=== PATIENT | female | born 1975 | race Caucasian/White ===

== ENCOUNTER 2023-02-06 16:32 | Outpatient (REF) | payer BC, SELFPAY ==
--- NOTE | 2023-02-06 16:30 | ENDOMET_PTH ---
PATIENT: Afsaneh Carroll LOC: [facility] U#:[id number] AGE/SX: 47/F ROOM: RE02/06/[address]: Jessie Hunter MD : [id number] BED: DIS: 02/06/2023 SPEC #: [id number] RECD: 02/06/23 17:24 STATUS: SELENE REQ #: [id number] BRITTANEY: 02/06/23 16:[address]: Jessie Hunter DEPT: Surgical Specimen RECD BY: Jia Jacobsen ENTERED: 02/06/23 17:25 SP TYPE: Endomet OTHR DR: Vanessa Cox Tissues: 1 - ENDOMETRIUM BX/ESCOBARETTE Procedures: GROSS AND MICRO LEVEL 4 Comments: [id number]
== END 2023-02-06 16:33 | disposition home or self-care (01) ==
LOC: LBN 16:32
PROVIDERS: PCP Family Medicine; Visit Provider Obstetrics & Gynecology
DX: N93.9 Abnormal uterine and vaginal bleeding, unspecified (principal)
CPT/HCPCS: 88305

== ENCOUNTER → 2023-08-13 03:38 | Outpatient (CLI) | payer BC, SELFPAY ==
[2023-08-13] MEDS: Gadoterate meglumine 20 ML SYRINGE IVP ×2 (09:36→10:12)
[2023-08-13] MEDS: Normal Saline Flush 10 ML SYR IVP (09:37)
--- NOTE | 2023-08-13 10:00 | DI.MRI_ITS ---
Exam(s) MR PELVIS WO/W EXAM: MR PELVIS WO/W CLINICAL HISTORY: D25.9N93.9Uterine leiomyoma, ABN bleeding,Image entire uterus to umbilicus TECHNIQUE: Multiplanar multisequence MRI of the pelvis was performed. CONTRAST MATERIAL: IV Contrast: 20 ML of Dotarem contrast administered. A 2nd injection of 20 mL Do tarem was administered following extravasation of the 1st contrast dose. COMPARISON: US US PELVIS TRANSVAGINAL from 02/03/2023 FINDINGS: Uterus: The uterus is enlarged measuring 18 cm transverse by 14 cm AP x 18 cm long. There are kelly us uterine masses present consistent with uterine fibroids. The largest is in the right uterine fund us and measures 8.2 cm transverse by 7.5 cm AP x 10 cm long. There is a posterior subserosal fibroid measuring 5.8 x 6.3 cm (series 8001, image 21). There is a left fundal fibroid measuring 6 cm trans verse by 7.8 cm AP x 7.4 cm long (series 8001, image 11). There is a 2.3 x 2.2 cm left exophytic fib roid (series 8001, image 17). There are multiple other fibroid present. Their locations include sub serosal, intramural and pedicular aided. Several of the fibroids show hyperintense signal centrally which may reflect necrosis.The endometrium is displaced posteriorly secondary to the numerous fibroid s in the anterior body. Ovaries: The left ovary measures 2.1 x 3.9 cm. (Series 8001, image 18). The right ovary measures 1. 5 x 2.8 cm (series 8001, image 25). Urinary bladder: Unremarkable. Bowel: There are diverticula seen in the sigmoid colon. Bones: Unremarkable. Soft tissues: Unremarkable. No significant pelvic ascites or adenopathy. IMPRESSION: Enlarged fibroid uterus as described above. DATA REPOSITORY:
== END ==
PROVIDERS: PCP Family Medicine; Visit Provider Obstetrics & Gynecology
DX: N85.2 Hypertrophy of uterus
CPT/HCPCS: 72197